=== PATIENT | male | born 1995 | race Caucasian/White ===

== ENCOUNTER 2016-04-27 19:07 | Emergency (ER) | payer OTHER ==
[2016-04-27 19:32] VITALS: BP 129/71
--- NOTE | 2016-04-27 19:32 | UC ---
Respiratory Complaint HPI - HPI Summary HPI Summary: The patient comes in today for: 1. Torso pain: Onset: 4-5 hours ago. Palliative/provocative: Breathing deeply or coughing. Quality: [place] Region/radiation: Anterior, inferior left chest. Severity: 7/10 Time: Constant. Associated symptoms: Event: The patient coughed today and there was a "pop" 4-5 hours ago. Previous treatment: He was seen at [facility] [place] three days ago. He was put on a cough suppressant and a nasal spray and Z-pac. Hemoptysis: None Dyspnea: None Cough production: None. Rhinitis: "Littile bit"--clear. * - History of Current Complaint Stated Complaint: CHEST CONGESTION Time Seen by Provider: 04/27/16 19:25 Hx Obtained From: Patient - Allergies/Home Medications Allergies/Adverse Reactions: Allergies Allergy/AdvReac Type Severity Reaction Status Date / Time No Known Allergies Allergy Verified 04/27/16 19:28 Home Medications: Home Medications Azithromycin TAB* [Zithromax TAB (Z-BREEZY) 250 mg #6 tabs] 250 mg PO DAILY [History Confirmed 04/27/16] Cough Suppressant* PRN 04/27/16 [History] PMH/Surg Hx/FS Hx/Imm Hx Previously Healthy: No - "IBS" Endocrine History Of: Denies: Diabetes, Thyroid Disease, Hyperthyroidism, Hypothyroidism, Dyslipidemia Cardiovascular History Of: Denies: Cardiac Disorders, Hypertension, Pacemaker/ICD, Myocardial Infarction , Congestive Heart Failure, Atrial Fibrillation, Deep Vein Thrombosis, Bleeding Disorders Respiratory History Of: Denies: COPD, Asthma, Bronchitis, Pneumonia, Pulmonary Embolism GI/ History Of: Denies: Gastroesophageal Reflux, Ulcer, Gastrointestinal Bleed, Gall Bladder Disease, Kidney Stones, Diverticulitis, Renal Disease, Urosepsis Neurological History Of: Denies: TIA, CVA, Dementia, Seizures, Migraine Psychological History Of: Denies: Anxiety, Depression, Bipolar Disorder, Schizophrenia, Post Traumatic Stress Disorder Cancer History Of: Denies: Lung Cancer, Colorectal Cancer, Breast Cancer, Prostate Cancer, Cervical Cancer Other History Of: Negative For: HIV, Hepatitis B, Hepatitis C, Anticoagulant Therapy - Family History Known Family History: Negative: Cardiac Disease, Hypertension - Social History Occupation: Student Alcohol Use: Rare Substance Use Type: None Smoking Status (MU): Never Smoked Tobacco Review of Systems Constitutional: Negative Skin: Negative Eyes: Negative ENT: Negative Respiratory: Cough Cardiovascular: Chest Pain Gastrointestinal: Negative Genitourinary: Negative Motor: Negative All Other Systems Reviewed And Are Negative: Yes Physical Exam Triage Information Reviewed: Yes Appearance: Well-Appearing, No Pain Distress, Well-Nourished Vital Signs Reviewed: Yes Eyes: Positive: Conjunctiva Clear. Negative: Discharge ENT: Positive: Hearing grossly normal. Negative: Pharyngeal erythema, Nasal congestion, Nasal drainage, TM bulging, TM dull, TM red, Tonsillar swelling, Tonsillar exudate Dental: Negative: Gross Decay/Caries @, Dental Fracture @ Neck: Positive: Supple, Nontender, No Lymphadenopathy. Negative: Nuchal Rigidity Respiratory: Positive: Lungs clear, No respiratory distress, No accessory muscle use. Negative: Crackles, Wheezing Cardiovascular: Positive: RRR, No Murmur Abdomen Description: Positive: Nontender, No Organomegaly, Soft. Negative: Distended, Guarding, Peritoneal Signs Musculoskeletal: Positive: Strength Intact, ROM Intact, Other: - There is tenderness to palpation of the left medial inferior anterior area of the costochondral edge. When in the supine position, and lifting his legs, it gets worse. Neurological: Positive: Alert, Muscle Tone Normal Psychological: Positive: Age Appropriate Behavior, Consolable Skin: Negative: rashes, breakdown UC Diagnostic Evaluation - Radiology Xray Interpretation: Positive (See Comments) - right middle lobe pnuemonia. Radiology Interpretation Completed By: Radiologist Respiratory Course/Dx - Course Course Of Treatment: Patient was told of the the diagnosis and what his treatment options were. He is a [employer] student who is in conversation via texts about his visit. They want x-rays done (CXR). Patient was told that he had a right middle lobe pneumonia, but left rectus abdominal muscle strain. He was told to finish the zithromax as it is the medication recommended for this. He is to follow up with the [facility]. - Differential Dx/Diagnosis Differential Diagnosis/HQI/PQRI: Bronchitis, Laryngitis Provider Diagnoses: Left rectus abdominal muscle tear. Discharge - Discharge Plan Condition: Stable Disposition: HOME Patient Education Materials: Muscle Strain (ED), Community Acquired Pneumonia ( ED) Forms: *School Release Additional Instructions: Please take the cough medication and the anti-inflammatory medication as needed for comfort. Avoid straining the abdominal muscles. Please be seen by Luis Carlos later this week or early next week to see how well you are doing. If you get worse, please see Luis Carlos or us if you can't see them timely.
--- NOTE | 2016-04-27 20:41 | RAD ---
INDICATION: LEFT lower chest pain. Cough for 1.5 weeks. COMPARISON: None. TECHNIQUE: Dual energy PA and routine lateral views of the chest were obtained. REPORT: Alveolar consolidation at the RIGHT middle lobe. Given absence of appreciable volume loss pneumonia is favored over atelectasis. Clear pleural spaces. Negative for pneumothorax. The heart, pulmonary vasculature, and mediastinal contours are unremarkable. IMPRESSION: RIGHT middle lobe pneumonia.
[2016-04-27] MEDS ORDERED: Naproxen TAB* 250 MG PO ONE (21:56)
== END 2016-04-27 21:12 | disposition home or self-care (01) ==
LOC: UCEAST 19:07
DX: S39.011A Strain of muscle, fascia and tendon of abdomen, initial encounter (principal); X50.9XXA Other and unspecified overexertion or strenuous movements or postures, initial encounter; Y93.9 Activity, unspecified; Y92.9 Unspecified place or not applicable
CPT/HCPCS: 71020; 99202; A9270-GY; G0463